=== PATIENT | male | born 1975 | race Caucasian/White ===

== ENCOUNTER 2017-05-15 07:57 | Day surgery (SDC) | payer BC ==
[~2017-05-15 07:57] MED LIST: MEDROL 4MG. DOSE4 MG PO; METOPROLOL SUCC50 M4 PO; SERTRALINE 100100 MG PO; ZITHROMAX Z PA250 MG PO
--- NOTE | 2017-05-15 09:37 | Operative Note ---
Colonoscopy ([place]) Procedure date: 05/15/17 Date of : 75 Procedure:Colonoscopy Colonoscopy with cold snare polypectomy Indications: Mr. Batista is a 41-year-old gentleman who is here for high risk screening colonoscopy. The patient does state that his maternal uncle had advanced colon polyps and colon cancer in his late 50s or early 60s. His maternal grandmother also had colon cancer. His mother had colonic polyps. The patient reports no abdominal pain, weight loss, change in his bowel habits or rectal bleeding. Performing Provider: Laureano Reynoso MD Referrring Provider: Clyde Philip M.D. Sedation: Fentanyl 200 mg IV/Versed 10 mg IV Procedure: Prior to the procedure, a history and physical exam was performed, and patient medications and allergies were reviewed. The risks and benefits of the procedure and the sedation options and risks were discussed with the patient. All questions were answered and informed consent was obtained. Patient identification and proposed procedure were verified by the physician and the nurse. The patient was placed in a left lateral decubitus position. Throughout the procedure, the patient's blood pressure, pulse, and oxygen saturations were monitored continuously. Findings: On digital rectal examination there was normal rectal tone. There were no external hemorrhoids. The colonoscope was introduced through the anal canal to the rectum and advanced to the cecum. The ileocecal valve and appendiceal orifice were identified. The scope was advanced a short distance into the ileum which appeared grossly normal. The scope was then withdrawn into the colon. There was a single 5-6 mm polyp in the ascending colon removed via cold snare polypectomy. The remaining cecum, ascending, transverse, descending, sigmoid and rectum were grossly normal. There were no mucosal abnormalities identified. Upon retroflexion within the rectum there were grade 1 internal hemorrhoids. Impressions: 1. Ascending colon polyp (5-6 mm) Recommendations: I will follow up the polyp pathology and recommend repeat colonoscopy again in 5 years based upon the polyp histology and the patient's family history. I would encourage fiber supplementation on a long-term daily maintenance basis. Complications: None EBL (ml): 0 at 0936
[2017-05-15 12:54] VITALS: BP 122/77
== END 2017-05-15 10:40 | disposition home or self-care (01) ==
LOC: SDC 07:57
PROVIDERS: Internal Medicine Gastroenterology
PROC: 0DBK8ZX Excision of Ascending Colon, Via Natural or Artificial Opening Endoscopic, Diagnostic (ICD-10-PCS; principal; 2017-05-15 09:00)
DX: Z12.11 Encounter for screening for malignant neoplasm of colon (principal); K63.5 Polyp of colon; Z80.0 Family history of malignant neoplasm of digestive organs; Z83.71 Family history of colonic polyps; K64.0 First degree hemorrhoids